=== PATIENT | male | born 1960 | race Caucasian/White ===

== ENCOUNTER 2024-08-14 06:21 | Day surgery (SDC) | payer OTHER, SELFPAY | END 2024-08-14 08:55 | disposition home or self-care (01) | LOC: GI 06:21 | PROVIDERS: ATTENDING PHYSICIAN Internal Medicine | DX: Z12.11 Encounter for screening for malignant neoplasm of colon (principal); D12.2 Benign neoplasm of ascending colon; K57.30 Diverticulosis of large intestine without perforation or abscess without bleeding; K62.1 Rectal polyp; Z86.0101 Personal history of adenomatous and serrated colon polyps; Z98.890 Other specified postprocedural states; Z80.0 Family history of malignant neoplasm of digestive organs | CPT/HCPCS: 45380; 88305 ==

== ENCOUNTER 2024-10-23 06:17 | Day surgery (SDC) | payer OTHER, SELFPAY ==
[2024-10-23 10:58] VITALS: BMI 27.5
[2024-10-23 10:59] VITALS: BMI 27.5
[2024-10-23 11:04] VITALS: BP 154/80
[2024-10-23 14:53] VITALS: BP 109/72
[2024-10-23 15:00] VITALS: BP 137/79
[2024-10-23 15:15] VITALS: BP 136/95
== END 2024-10-23 15:26 | disposition home or self-care (01) ==
LOC: GI 06:17
PROVIDERS: ATTENDING PHYSICIAN Internal Medicine Gastroenterology
DX: K64.0 First degree hemorrhoids (principal); D12.2 Benign neoplasm of ascending colon; D12.6 Benign neoplasm of colon, unspecified; K63.5 Polyp of colon
CPT/HCPCS: 45390; 88305

== ENCOUNTER → 2025-01-09 14:10 | Outpatient (REF) | payer OTHER, SELFPAY | LOC: DHSLP 14:10 | PROVIDERS: ATTENDING PHYSICIAN Internal Medicine; FAMILY PHYSICIAN Family Medicine | DX: G47.33 Obstructive sleep apnea (adult) (pediatric) (principal) | CPT/HCPCS: 95800 ==

== ENCOUNTER → 2025-03-25 09:42 | Outpatient (REF) | payer OTHER, SELFPAY | LOC: WDC 09:42 | PROVIDERS: ATTENDING PHYSICIAN Family Medicine | DX: N64.4 Mastodynia (principal) | CPT/HCPCS: 76642; 77062; 77066 ==